=== PATIENT | male | born 1970 | race Caucasian/White ===

== ENCOUNTER 2024-12-31 23:58 | Emergency (ER) | payer OTHER, SELFPAY ==
[2024-12-31 23:59] VITALS: BMI 24.6
[2025-01-01] VITALS (20 sets, daily range): BP systolic 123–173; BP diastolic 75–112
--- NOTE | 2025-01-01 03:04 | ED.GENMED ---
History of Present Illness
General
Chief Complaint: Musculo-Skeletal Complaint
Source: patient
Exam Limitations: none
Time Seen by Provider: 01/01/25 01:47
Nursing documentation reviewed up to this point in time: agreed with
History of Present Illness
History of Present Illness:
54-year-old male presenting to the emergency department after a fall directly onto his left arm while playing hockey prior to arrival. Immediately felt a dislocation to his left shoulder. Ongoing pain since no numbness or weakness. No history of
dislocations in the past. Not on blood thinners no additional injuries
Review of Systems
Review of Systems
Allergies reviewed?: Yes
All Other Systems: ROS reviewed and negative except as documented in HPI and ROS
Phy Exam
Physical Exam
Physical Exam:
GENERAL: Alert , in no apparent distress
EYE: pupils equal and reactive
NECK: Supple, no significant adenopathy.
ENT: o/p clr, mmm.
CARDIAC: Regular rate and rhythm .
LUNGS: Clear breath sounds bilaterally, no acute respiratory distress, no wheezes/rales/rhonchi
ABDOMEN: Soft, without focal tenderness, no r/g, no cvat
NEUROLOGICAL: Alert and oriented, no focal neuro deficits
SKIN: Warm and dry, skin intact.
MUSCULOSKELETAL: Deformed left shoulder significant discomfort unable to move at the shoulder otherwise normal upper extremity examination. No skin skin changes well perfused.
PSYCH: Normal and appropriate interaction.
Course
Orders/Labs/Results
Orders:
Orders
01/01/25 00:28
Shoulder, Left, Trauma CR [CR Shoulder, Trauma - Left] Urgent
Comment:
Reason For Exam: fell on l shoulder, possible dislocation
01/01/25 02:34
Propofol [Diprivan] 20 ml .ROUTE .STK-MED
01/01/25 02:59
Shoulder, Left 1 View CR [CR Shoulder - Left 1 View] Urgent
Comment:
Reason For Exam: Post Reduction
Vital Signs
Initial and Last Documented VS:
Initial Vital Signs
Temp Pulse Resp BP Pulse Ox
98.7 F 92 20 152/94 98
01/01/25 00:24 01/01/25 00:24 01/01/25 00:24 01/01/25 00:24 01/01/25 00:24
Last Documented Vital Signs
Temp Pulse Resp BP Pulse Ox
97.8 F 73 17 155/92 99
01/01/25 03:37 01/01/25 04:00 01/01/25 04:00 01/01/25 03:45 01/01/25 04:00
Procedures
Moderate Sedation
ASA Risk Score: Class I
Chart and allergies reviewed: Yes
Consent for anesthesia obtained: Yes
Time out completed (validating right patient & procedure): Yes
Moderate Sedation Start Time(when first medication is given): 02:51
History of difficult intubation: No
Airway free of obstruction: Yes
Patient has a gag reflex: Yes
Patient is able to open mouth: Yes
Patient has no dentures: Yes
Patient has no loose teeth: Yes
Medication administered by Provider during Moderate Sedation: IV Propofol (mg) (140)
Total dose administered: 140
Time drug administered: 02:51
Moderate Sedation Procedure End Time: 03:02
Joint/Fracture Reduction
Left Shoulder:
Indication for procedure:: Left shoulder dislocation
Procedure completed by: Myself, Dr. Sexton
Consent form signed: Yes
Joint reduced: with anesthesia sedation
Anesthesia/sedation: Other (Shoulder injection 20 cc of bupivacaine)
Injury was: closed
Further treatement: needs further treatment
Post reduction exam: stable
Capillary Refill: normal
Normal distal neurovascular exam?: Yes
Peripheral Pulses: brachial (left): 2+ and radial (left): 2+
MDM/Problems Addressed
MDM/Problems Addressed:
54-year-old male presenting to the emergency department today with concerns of left shoulder deformity and discomfort after falling on his left arm while playing hockey prior to arrival. Patient found to have a dislocation on x-ray. This was
reduced using moderate sedation. Patient was found to have a small glenoid fracture associated. Patient in a sling and otherwise will follow-up closely with orthopedics. Return precautions given.
*Critical Care Note
Total Time (30-74mins, 75-104mins- exclusive of procedures): Not Applicable
ED Attending Note
-
Portions of this chart may have been created with voice recognition software.� Occasional wrong word or��sound alike� substitutions may have occurred due to the inherent limitations of voice recognition software.
Discharge Plan
Departure
Patient Disposition: Home (Routine Discharge)
Date of Disposition: 01/01/25
Time of Disposition: 04:09
Patient with high blood pressure during this ER visit?: No
Condition: Good
Covid-19: Not Applicable
Discharge Problem:
Dislocated shoulder, Glenoid fracture of shoulder
Instructions: Shoulder Dislocation (DC)
Referrals:
Franck Pennington MD [Active] - Follow up in 5-7 days
UNKNOWN - PT DOES,NOT KNOW [Family Provider] -
Activity Restrictions/Additional Instructions:
You came to the emergency department today after a shoulder injury. You are found to have a dislocated shoulder that was reduced you also were found have a fracture of your glenoid. Please remain in the sling until follow-up with orthopedics.
Return for any worsening, new or concerning symptoms.
Interventions
Interventions:
*Risk Screen - Suicide Last Done: 01/01/25 00:24
*General Assessment Last Done: 01/01/25 04:36
*Neglect/Abuse Screening Last Done: 01/01/25 04:36
*ED- Fall Risk Assessment Last Done: 01/01/25 04:36
*ED COVID-19 Vaccine History Last Done: 01/01/25 04:36
*Nursing Disposition Last Done: 01/01/25 04:36
ED-Musculoskeletal Assessment Last Done: 01/01/25 02:38
Discharge Date and Time
Discharge Date/Time: 01/01/25 04:42
Print Language: SPANISH
== END 2025-01-01 04:42 | disposition home or self-care (01) ==
LOC: EMR 23:58
PROVIDERS: EMERGENCY PHYSICIAN Emergency Medicine
DX: S43.005A Unspecified dislocation of left shoulder joint, initial encounter (principal); S42.92XA Fracture of left shoulder girdle, part unspecified, initial encounter for closed fracture; W18.39XA Other fall on same level, initial encounter
CPT/HCPCS: 99283; 23650; 73020; 73030

== ENCOUNTER → 2025-01-20 08:50 | Outpatient (REF) | payer OTHER, SELFPAY | LOC: HWRAD 08:50 | PROVIDERS: ATTENDING PHYSICIAN Physician Assistant Surgical; FAMILY PHYSICIAN Family Medicine | DX: S43.015A Anterior dislocation of left humerus, initial encounter (principal); M25.512 Pain in left shoulder | CPT/HCPCS: 73200 ==

== ENCOUNTER 2025-01-21 06:13 | Day surgery (SDC) | payer OTHER, SELFPAY ==
[2025-01-21] VITALS (10 sets, daily range): BP systolic 99–129; BP diastolic 70–86; BMI 23.8
[2025-01-21] MEDS: NORMOSOL-R/PLASMALYTE-A 1000 IV (09:15)
[2025-01-21] MEDS: TYLENOL 1000 MG PO (09:15)
[2025-01-21] MEDS: CELEBREX 200 MG PO (09:16)
[2025-01-21] MEDS: DEMEROL 12.5 MG IV ×2 (13:18→13:26)
[2025-01-21] MEDS: ROXICODONE 5 MG PO (14:27)
== END 2025-01-21 14:57 | disposition home or self-care (01) ==
LOC: SDS 06:13
PROVIDERS: ATTENDING PHYSICIAN Orthopaedic Surgery Hand Surgery
DX: S42.142A Displaced fracture of glenoid cavity of scapula, left shoulder, initial encounter for closed fracture (principal); S43.432A Superior glenoid labrum lesion of left shoulder, initial encounter; X58.XXXA Exposure to other specified factors, initial encounter
CPT/HCPCS: 23585; 29806; 73020; 73060; 76000; 93005; C1713